=== PATIENT | female | born 1950 | race Caucasian/White ===

== ENCOUNTER 2019-11-28 11:25 | Emergency (ER) | payer OTHER ==
--- NOTE | 2019-11-28 12:08 | ER ---
Nurse's Notes [facility] Name: Niharika Rose Age: 69 yrs Sex: Female : 1950 Arrival Date: 11/28/2019 Time: 11:28 Bed 17 Private MD: Diagnosis: Other slipping, tripping and stumbling and falls;Temporomandibular joint disorder, unspecified;Left Mandibular Contusion Presentation: 11/27 11:40 Chief complaint: Patient states: "I stumbled and fell right onto my chin". pt c/o jaw aa5 pain. Denies LOC. 11:40 Coronavirus screen: Proceed with normal triage. Patient denies a cough. Patient denies aa5 shortness of breath or difficulty breathing. Patient denies measured and/or subjective temperature greater than 100.4F prior to today's visit. Patient denies travel on a cruise ship or to a country the [facility] currently lists as an affected area. Patient denies contact with known and/or suspected case of COVID-19. Ebola Screen: Patient negative for fever greater than or equal to 101.5 degrees Fahrenheit, and additional compatible Ebola Virus Disease symptoms. Initial Sepsis Screen: Does the patient meet any 2 criteria? No. Patient's initial sepsis screen is negative. Does the patient have a suspected source of infection? No. Patient's initial sepsis screen is negative. Risk Assessment: Do you want to hurt yourself or someone else? Patient reports no desire to harm self or others. Onset of symptoms was November 28, 2019. 11:40 Acuity: JUAN 4 aa5 11:40 Method Of Arrival: Ambulatory aa5 Historical: - Allergies: 11:49 No Known Allergies; aa5 - PMHx: 11:49 None; aa5 - PSHx: 11:49 Appendectomy; aa5 - Immunization history:: Last tetanus immunization: unknown. - Social history:: Smoking status: Patient denies any tobacco usage or history of. Screenin:45 Abuse screen: Denies threats or abuse. Nutritional screening: No deficits noted. rb1 Tuberculosis screening: No symptoms or risk factors identified. Fall Risk Fall in past 12 months (25 points). No secondary diagnosis (0 pts). No IV (0 pts). Ambulatory Aid- None/Bed Rest/Nurse Assist (0 pts). Gait- Normal/Bed Rest/Wheelchair (0 pts) Mental Status- Oriented to own ability (0 pts). Total Sun Fall Scale indicates Low Risk Score (25-44 pts). Fall prevention measures have been instituted. Side Rails Up X 2 Placed close to Nursing Station 1:1 attendant Assigned to Pt. Frequent Obs/Assesments occuring As available Patient and Family Educated on Fall Prevention Program and strategies. Assessment: 11:45 General: Appears in no apparent distress. comfortable, Behavior is calm, cooperative. rb1 General: Pt. reports that she was running when she fell landing on her hands and hitting her chin on the sidewalk. Denies LOC. . Pain: Complains of pain in left jaw Pain currently is 3 out of 10 on a pain scale. Pain began this morning. Neuro: Level of Consciousness is awake, alert, obeys commands, Oriented to person, place, time, situation. Cardiovascular: Capillary refill < 3 seconds. Respiratory: Airway is patent Respiratory effort is even, unlabored, Respiratory pattern is regular, symmetrical. GI: No signs and/or symptoms were reported involving the gastrointestinal system. : No signs and/or symptoms were reported regarding the genitourinary system. Derm: Skin is pink, warm \\T\\ dry. Derm: approximate 0.5 cm laceration noted to her chin, bleeding controlled. Musculoskeletal: Range of motion: intact in all extremities. 12:19 Reassessment: Discharge pending due to shot time. rb1 12:29 Reassessment: Patient appears in no apparent distress at this time. No changes from rb1 previously documented assessment. Vital Signs: 11:40 BP 126 / 76; Pulse 87; Resp 16 S; Temp 97.2(TE); Pulse Ox 100% on R/A; Weight 57.15 kg aa5 (R); Height 5 ft. 4 in. (162.56 cm) (R); Pain 3/10; 12:29 BP 102 / 65; Pulse 74; Resp 16; Pulse Ox 100% on R/A; rb1 11:40 Body Mass Index 21.63 (57.15 kg, 162.56 cm) aa5 ED Course: 11:28 Patient arrived in ED. as 11:40 Arm band placed on. aa5 11:45 Patient has correct armband on for positive identification. Bed in low position. Call rb1 light in reach. Side rails up X 1. Pulse ox on. NIBP on. 11:46 Triage completed. aa5 11:52 Pepe Mcintyre MD is Attending Physician. kdr 12:01 Shannon Govea, RN is Primary Nurse. rb1 12:30 No provider procedures requiring assistance completed. Patient did not have IV access rb1 during this emergency room visit. 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 Exp: rb1 08/22/2021. Lot #: [id number]. } Route: IM; Site: right deltoid; 12:27 Follow up: Response: No adverse reaction rb1 Outcome: 12:08 Discharge ordered by . kdr 12:30 Patient left the ED. rb1 12:30 Discharged to home ambulatory. rb1 12:30 Condition: stable 12:30 Discharge instructions given to patient, Instructed on discharge instructions, follow up and referral plans. medication usage, Demonstrated understanding of instructions, follow-up care, medications, Prescriptions given X 1. Signatures: Pepe Mcintyre MD MD [facility] Prema Shukla Audri, RN RN aa5 Shannon Govea, RN RN rb1
--- NOTE | 2019-11-28 12:08 | EDPHYS ---
Physician Documentation [facility] Name: Niharika Rose Age: 69 yrs Sex: Female : 1950 Arrival Date: 11/28/2019 Time: 11:28 Bed 17 Private MD: ED Physician Pepe Mcintyre HPI: 11/27 12:00 This 69 yrs old Female presents to ER via Ambulatory with complaints of Fall kdr Injury, Jaw Pain. 12:00 Details of fall: The patient fell from an upright position, while running. Onset: The kdr symptoms/episode began/occurred acutely, just prior to arrival. Associated injuries: The patient sustained Left TMJ and mandible. Severity of symptoms: At their worst the symptoms were mild, in the emergency department the symptoms are unchanged. The patient has not experienced similar symptoms in the past. The patient has not recently seen a physician. Historical: - Allergies: 11:49 No Known Allergies; aa5 - PMHx: 11:49 None; aa5 - PSHx: 11:49 Appendectomy; aa5 - Immunization history:: Last tetanus immunization: unknown. - Social history:: Smoking status: Patient denies any tobacco usage or history of. ROS: 12:00 Constitutional: Negative for fever, chills, and weight loss. kdr 12:00 ENT: Positive for Left proximal mandibular pain and 3 mm lac to chin. 12:00 Skin: Positive for laceration(s), of the submental area. Exam: 12:00 Constitutional: This is a well developed, well nourished patient who is awake, alert, kdr and in no acute distress. 12:00 Head/face: Noted is tenderness, of the chin and left cheek. Vital Signs: 11:40 BP 126 / 76; Pulse 87; Resp 16 S; Temp 97.2(TE); Pulse Ox 100% on R/A; Weight 57.15 kg aa5 (R); Height 5 ft. 4 in. (162.56 cm) (R); Pain 3/10; 12:29 BP 102 / 65; Pulse 74; Resp 16; Pulse Ox 100% on R/A; rb1 11:40 Body Mass Index 21.63 (57.15 kg, 162.56 cm) aa5 Laceration: 12:00 Wound Repair of .3cm ( 0.1in ) subcutaneous laceration to submental area. Distal kdr neuro/vascular/tendon intact. Anesthesia: Local anesthetic administered with 1% lidocaine. Wound prep: Moderate cleansing, Copious irrigation. Skin closed with thin layer Adhesive skin closure using Dermabond. Dressed with bandaid. Patient tolerated well. MDM: 12:00 Data reviewed: vital signs, nurses notes. Counseling: I had a detailed discussion with kdr the patient and/or guardian regarding: the historical points, exam findings, and any diagnostic results supporting the discharge/admit diagnosis, lab results, radiology results, the need for outpatient follow up. 12:08 Patient medically screened. 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 Exp: rb1 08/22/2021. Lot #: [id number]. } Route: IM; Site: right deltoid; 12:27 Follow up: Response: No adverse reaction rb1 Disposition: 11/28/19 12:08 Discharged to Home. Impression: Other slipping, tripping and stumbling and falls, Temporomandibular joint disorder, unspecified, Left Mandibular Contusion. - Condition is Stable. - Discharge Instructions: Temporomandibular Joint Syndrome, Tissue Adhesive Wound Care, [id number]. - Prescriptions for Ibuprofen 600 mg Oral Tablet - take 1 tablet by ORAL route every 6 hours As needed take with food; 15 tablet. - Medication Reconciliation Form, Thank You Letter form. - Follow up: Private Physician; When: 2 - 3 days; Reason: If symptoms return, Further diagnostic work-up, Recheck today's complaints, Continuance of care, Re-evaluation by your physician. - Problem is new. - Symptoms have improved. Signatures: Pepe Mcintyre MD MD kdr Zahra Leblanc, RN RN aa5 Shannon Govea, RN RN rb1 Corrections: (The following items were deleted from the chart) 12:30 12:08 11/28/2019 12:08 Discharged to Home. Impression: Other slipping, tripping and rb1 stumbling and falls; Temporomandibular joint disorder, unspecified; Left Mandibular Contusion. Condition is Stable. Forms are Medication Reconciliation Form, Thank You Letter, Antibiotic Education, Prescription Opioid Use. Follow up: Private Physician; When: 2 - 3 days; Reason: If symptoms return, Further diagnostic work-up, Recheck today's complaints, Continuance of care, Re-evaluation by your physician. Problem is new. Symptoms have improved. kdr
[2019-11-28] MEDS ORDERED: DERMABOND SKIN ADHESIVE TOP ONE (12:09)
[2019-11-28] MEDS ORDERED: TETANUS & DIPHTHERIA TOX,ADULT 0.5 ML VIAL ONE (12:09)
[2019-11-28 12:36] VITALS: TEMP 97.2; O2SAT 100
[2019-11-28 12:37] VITALS: BP 102/65
== END 2019-11-28 12:30 | disposition home or self-care (01) ==
LOC: ER 11:25
PROC: 0JQ10ZZ Repair Face Subcutaneous Tissue and Fascia, Open Approach (ICD-10-PCS; principal; 2019-11-28)
DX: S01.81XA Laceration without foreign body of other part of head, initial encounter (principal); M26.609 Unspecified temporomandibular joint disorder, unspecified side; W01.0XXA Fall on same level from slipping, tripping and stumbling without subsequent striking against object, initial encounter; Y93.02 Activity, running; Y92.9 Unspecified place or not applicable; Z23 Encounter for immunization
CPT/HCPCS: 90471; 90714; 99283

== ENCOUNTER 2023-05-22 08:37 | Emergency (ER) | payer OTHER ==
--- OUTSIDE RECORDS SUMMARY | 2023-05-22 08:41 | XMS REPORT | Continuity of Care Document ---
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 Social History Social Habit Start Date Stop Date Quantity Comments Source History of tobacco Cigarette Smoker [facility] use Exposure to 2022-12-27 2023-01-06 Not sure [facility] SARS-CoV-2 (event) 00:00:00 08:55:00 Tobacco use and 2023-01-06 2023-01-06 Smokeless tobacco [facility] exposure 00:00:00 00:00:00 non-user Alcohol intake 2023-01-06 2023-01-06 Lifetime [facility] 00:00:00 00:00:00 non-drinker (finding) Sex Ass[birth year] At [birth year] [facility] 00:00:00 00:00:00 Smoking Status Start Date Stop Date Source Tobacco smoking consumption unknown [facility] Ex-smoker 2023-01-06 00:00:00 2023-01-06 00:00:00 [facility] Medications Ordered Filled Start Stop Current Ordering Indication Dosage Frequency Signature Comments Components Source Medication Medication Date Date Medication? Clinician (SIG) Name Name buPROPion 0 Yes [facility] XL ([facility] XL) 450 MG 00:00: 24 hr 00 tablet lamoTRIgine 2020-0 Yes [facility] (LaMICtal) [facility] 25 MG 00:00: tablet 00 buPROPion 2020-0 Yes [facility] XL (For[facility] XL) 450 MG 00:00: 24 hr 00 tablet lamoTRIgine 1-0 Yes [facility] (LaMICtal) [facility] 25 MG 00:00: tablet 00 buPROPion 1-0 Yes [facility] XL (Forfivo [facility] XL) 450 MG 00:00: 24 hr 00 tablet lamoTRIgine 1-0 Yes [facility] (LaMICtal) [facility] 25 MG 00:00: tablet 00 buPROPion 1-0 Yes [facility] XL (Forfivo [facility] XL) 450 MG 00:00: 24 hr 00 tablet lamoTRIgine 2021-0 Yes [facility] (LaMICtal) [facility] 25 MG 00:00: tablet 00 Procedures This patient has no known procedures. Encounters Start End Encounter Admission Attending Care Care Encounter Source Date/Time Date/Time Type Type Clinicians Facility Department ID 2023-01-06 Outpatient [facility] [id number] [place] 08:50:00 [id number] [facility] 2023-01-05 Outpatient [facility] [id number] [place] 07:30:09 [id number] [facility] 2022-10-20 Outpatient [facility] [id number] [place] 08:49:36 [id number] [facility] 2022-05-09 [facility] [id number] Common 15:08:03 [facility] 2020-12-12 Outpatient [facility] [id number] [place] [facility]:15[facility] 2024-01-08 Outpatient [facility]ON[facility] [id number] [place] 09:30:00 09:30:[facility]23-01-06 2023-01-06 Office DANA Zamorano [id number] [place] 09:30:00 09:30:00 Visit Latonia ERICKSON [id number] [facility] [id number] [facility] [id number] 2022-01-06 2022-01-06 Office DANA Zamorano [facility] [id number] [place] 09:00:00 09:45:36 Visit Latonia [id number] He alth [id number] 2021-04-05 2021-04-05 Office DANA Zamorano [facility] [id number] [place] 08:26:43 16:30:49 Visit Latonia [id number] He alth [id number] 2021-01-01 2021-01-01 Office DANA Zamorano [facility] [id number] [place] 08:15:40 08:39:03 Visit Latonia [id number] He alth [id number] 1 2021-01-01 2021-01-01 Office DANA Zamorano [facility] [id number] [place] 08:35:11 08:38:31 Visit Latonia [id number] He alth [id number] 1 Results This patient has no known results.
--- NOTE | 2023-05-22 09:09 | RAD REPORT ---
[facility] CLINICAL HISTORY: CHEST PAIN COMPARISON: CHEST SINGLE VIEW dated 01/15/2013; CHEST PA AND LAT 2 VIEW dated 08/10/2010; CHEST PA AND LAT 2 VIEW dated 03/28/2008; CHEST PA AND LAT 2 VIEW dated 02/09/2007 TECHNIQUE: Portable AP view of the chest. FINDINGS: The lungs are clear. Diffuse hyperinflation again seen, suggesting sequelae of COPD. No pn eumothorax or effusion. The cardiomediastinal contours are unremarkable. IMPRESSION: No acute cardiopulmonary process.
--- NOTE | 2023-05-22 09:10 | RAD REPORT ---
EXAM DESCRIPTION: Ribs Right - 05/22/2023 9:02 am CLINICAL HISTORY: RIB PAIN - RIGHT COMPARISON: Chest Single View dated 05/22/2023 TECHNIQUE: Right ribs, 3 views. FINDINGS: No displaced rib fracture is evident. No aggressive rib lesion. No underlying pneumothorax, effusion, infiltrate or pulmonary contusion. IMPRESSION: Negative right rib series.
--- NOTE | 2023-05-22 09:12 | ER ---
[facility] Name: Niharika Rose Age: 73 yrs Sex: Female : 1950 Arrival Date: 05/22/2023 Time: 08:37 Bed 20 Private MD: Diagnosis: Contusion of right front wall of thorax-lateral Presentation: 05/22 08:51 Chief complaint: Patient states: Tripped last night. Has R trunk pain today. ll1 Coronavirus screen: Vaccine status: Patient reports receiving the 2nd dose of the covid vaccine. Client denies travel out of the [place] in the last 14 days. At this time, the client does not indicate any symptoms associated with coronavirus-19. Ebola Screen: Patient denies travel to an Ebola-affected area in the 21 days before illness onset. Initial Sepsis Screen: Does the patient meet any 2 criteria? No. Patient's initial sepsis screen is negative. Does the patient have a suspected source of infection? Yes: Bone or joint infection. Risk Assessment: Do you want to hurt yourself or someone else? Patient reports no desire to harm self or others. Onset of symptoms was May 21, 2023. 08:51 Method Of Arrival: Ambulatory ll1 08:51 Acuity: JUAN 4 ll1 Historical: - Allergies: 08:50 No Known Allergies; ll1 - PMHx: 08:50 None; ll1 - PSHx: 08:50 None; ll1 - Immunization history:: Client reports receiving the 2nd dose of the Covid vaccine. - Social history:: Smoking status: Patient denies any tobacco usage or history of. Screenin:18 [facility] ED Fall Risk Assessment (Adult) History of falling in the last 3 months, ap3 including since admission Yes- single mechanical fall (1 pt) Confusion or Disorientation No (0 pts) Intoxicated or Sedated No (0 pts) Impaired Gait No (0 pts) Mobility Assist Device Used No (0 pt). Abuse screen: Denies threats or abuse. Nutritional screening: No deficits noted. Tuberculosis screening: No symptoms or risk factors identified. Assessment: 09:18 General: Appears in no apparent distress. Behavior is calm, cooperative, appropriate ap3 for age. Pain: Complains of pain in right lateral anterior chest. Neuro: Level of Consciousness is awake, alert, obeys commands, Oriented to person, place, time, situation. Cardiovascular: Patient's skin is warm and dry. Respiratory: Airway is patent Respiratory effort is even, unlabored. Vital Signs: 08:51 BP 141 / 68; Pulse 81; Resp 15; Temp 97.1; Pulse Ox 100% ; Weight 61.23 kg; Height 5 ll1 ft. 4 in. ; Pain 5/10; 08:51 Body Mass Index 23.17 (61.23 kg, 162.56 cm) ll1 08:51 Pain Scale: Adult ll1 ED Course: 08:38 Patient arrived in ED. rg4 08:39 Mariaelena Joseph FNP-C is [facility]. kb 08:39 Graciela Anderson MD is Attending Physician. kb 08:50 Laurel Conde, RN is Primary Nurse. ap3 08:50 Arm band placed on Patient placed in an exam room, on a stretcher. ll1 08:52 Triage completed. ll1 08:59 Chest Single View XRAY In Process Unspecified. EDMS 08:59 Ribs Right XRAY In Process Unspecified. EDMS 09:18 No provider procedures requiring assistance completed. Patient did not have IV access ap3 during this emergency room visit. 09:19 Provided Education on: discharge instructions. ap3 09:19 Patient has correct armband on for positive identification. Bed in low position. Call ap3 light in reach. Pulse ox on. NIBP on. Administered Medications: No medications were administered Medication: 09:19 VIS not applicable for this client. ap3 Outcome: 09:12 Discharge ordered by . kb 09:18 Discharged to home ambulatory, ap3 09:18 Condition: good 09:18 Discharge instructions given to patient, Instructed on discharge instructions, follow up and referral plans. Demonstrated understanding of instructions, follow-up care, 09:19 Patient left the ED. ap3 Signatures: Dispatcher [employer] EDMS Mariaelena Joseph FNP-C FNP-Lorene Vail rg4 Laurel Conde, RN RN ap3 Greer Hernandez RN RN ll1
--- NOTE | 2023-05-22 09:12 | EDPHYS ---
Physician Documentation [facility] Name: Niharika Rose Age: 73 yrs Sex: Female : 1950 Arrival Date: 05/22/2023 Time: 08:37 Bed 20 Private MD: ED Physician Graciela Anderson HPI: 05/22 09:06 This 73 yrs old Female presents to ER via Ambulatory with complaints of Fall Injury. kb 09:06 Details of fall: The patient fell from a height, down approximately 4 stairs. Onset: kb The symptoms/episode began/occurred yesterday. Associated injuries: The patient sustained injury to the chest, specifically the right lateral anterior chest, pain with breathing, pain with movement. Severity of symptoms: At their worst the symptoms were mild, in the emergency department the symptoms are unchanged. The patient has not experienced similar symptoms in the past. The patient has not recently seen a physician. Pt reports she fell down 4 steps last night and hit her right ribs. Reports soreness to right lateral ribs that is worse with movement and deep breath. Denies any other injuries. Denies loc. Historical: - Allergies: 08:50 No Known Allergies; ll1 - PMHx: 08:50 None; ll1 - PSHx: 08:50 None; ll1 - Immunization history:: Client reports receiving the 2nd dose of the Covid vaccine. - Social history:: Smoking status: Patient denies any tobacco usage or history of. ROS: 09:05 Constitutional: Negative for fever, chills, and weight loss, kb 09:05 Cardiovascular: Positive for chest pain, with movement, of the right lateral anterior chest, 09:05 All other systems are negative, Exam: 09:05 Constitutional: This is a well developed, well nourished patient who is awake, alert, kb and in no acute distress. Head/Face: Normocephalic, atraumatic. ENT: Moist Mucous membranes Cardiovascular: Regular rate Respiratory: Respirations even and unlabored. No increased work of breathing. Talking in full sentences Abdomen/GI: Soft, non-tender. No distention Skin: Warm, dry with normal turgor. Normal color. MS/ Extremity: Pulses equal, no cyanosis. Neurovascular intact. Full, normal range of motion. Neuro: Awake and alert, GCS 15, oriented to person, place, time, and situation. Moves all extremities. Normal gait. Vital Signs: 08:51 BP 141 / 68; Pulse 81; Resp 15; Temp 97.1; Pulse Ox 100% ; Weight 61.23 kg; Height 5 ll1 ft. 4 in. ; Pain 5/10; 08:51 Body Mass Index 23.17 (61.23 kg, 162.56 cm) ll1 08:51 Pain Scale: Adult ll1 MDM: 08:39 Patient medically screened. kb 09:06 Data reviewed: vital signs, nurses notes. kb 09:07 Differential diagnosis: contusion, laceration. kb 09:11 Counseling: I had a detailed discussion with the patient and/or guardian regarding the kb historical points, exam findings, and any diagnostic results supporting the discharge/admit diagnosis, radiology results, the need for outpatient follow up, a family practitioner, to return to the emergency department if symptoms worsen or persist or if there are any questions or concerns that arise at home. 05/22 08:41 Order name: Chest Single View XRAY; Complete Time: 09:11 kb 05/22 08:41 Order name: Ribs Right XRAY; Complete Time: 09:11 kb Administered Medications: No medications were administered Disposition Summary: 05/22/23 09:12 Discharge Ordered Notes: Location: Home kb Condition: Stable kb Diagnosis - Contusion of right front wall of thorax - lateral kb Followup: kb - With: Emergency Department - When: As needed - Reason: Worsening of condition Followup: kb - With: Private Physician - When: 2 - 3 days - Reason: Recheck today's complaints, Continuance of care, Re-evaluation by your physician Discharge Instructions: - Discharge Summary Sheet kb - Rib Contusion kb - Chest Contusion, Adult, [id number] kb Forms: - Medication Reconciliation Form kb - Thank You Letter kb - Antibiotic Education kb - Prescription Opioid Use kb - Patient Portal Instructions kb - Leadership Thank You Letter kb Signatures: Dispatcher [employer] Mariaelena Roland FNP-C FNP-Greer Zelaya, RN RN ll1
[2023-05-22 09:24] VITALS: BP 141/68; TEMP 97.1; O2SAT 100
== END 2023-05-22 09:19 | disposition home or self-care (01) ==
LOC: ER 08:37
DX: S20.211A Contusion of right front wall of thorax, initial encounter (principal)
CPT/HCPCS: 71045; 99283

== ENCOUNTER 2024-12-05 10:55 | Day surgery (SDC) | payer OTHER ==
[2024-12-04 12:12] LABS: Absolute Eosinophils 0.1 K/uL (0-0.5); Absolute Lymphocytes (CBC) 1.3 K/uL (0.7-4.9); Absolute Monocytes 0.4 K/uL (0.1-1.3); Absolute Neutrophil 3.1 K/uL (1.8-8.0); Basophils % 0.7 % (0-1.3); Eosinophils % 2.5 % (0-4.4); Hematocrit 39.2 % (36.0-45.0); Hemoglobin 13.7 g/dL (12.0-15.0); Lymphocytes % 25.3 % (15.3-44.8); MCH 32.7 pg (27.0-35.0); MCV 93.4 fL (80-100); MPV 8.7 fL (7.6-11.3); Monocytes % 8.3 % (3.3-12.3); Neutrophils % 63.2 % (41.7-73.7); Nucleated Red Blood Cells % 0.1 % (0-0); Platelets 207 thou/uL (152-406); RBC Red Blood Cell Count 4.19 M/uL (3.86-4.86); Red Cell Distribution Width 13.8 % (12.1-15.2)
[2024-12-04 12:26] LABS: Anion Gap 7.3 mEq/L (5.0-15.0); Potassium 4.3 mEq/L (3.5-5.1)
[2024-12-05] MEDS: Ringers Lactate 1,000 ML IV ONE (11:15)
--- NOTE | 2024-12-05 11:56 | EKG ---
Test Date: 2024-12-04 Test Time: 11:56:57 Director Diversity: CLARA MEASUREMENT RESULTS: Intervals: Rate: 88 MI: 144 QRSD: 76 QT: 346 QTc: 418 [place]: P: 74 MI: 144 QRS: 69 T: 72 INTERPRETIVE STATEMENTS: Normal sinus rhythm Nonspecific ST abnormality Abnormal ECG Compared to ECG 01/15/2013 19:23:25 ST (T wave) deviation now present Electronically Signed On 12-05-24 11:53:11 CDT by Anant Leon
[2024-12-05] MEDS: CEFAZOLIN SODIUM 2 GM/VIAL ONE (13:26)
[2024-12-05] MEDS: LIDOCAINE HCL/EPINEPHRINE 20 ML MDV ONE (13:54)
[2024-12-05] MEDS ORDERED: LIDOCAINE 1% MPF 5 ML VIAL ONE (14:04)
[2024-12-05] MEDS ORDERED: ONDANSETRON 4 MG/2 ML VIAL ONE (14:04)
[2024-12-05] MEDS ORDERED: FENTANYL CITR 100 MCG/2 ML ONE (14:05)
[2024-12-05] MEDS ORDERED: propofoL 200 MG/20 ML VIAL IV ONE (14:05)
[2024-12-05] MEDS ORDERED: MIDAZOLAM HCL 2 MG/2 ML INJ ONE (14:05)
[2024-12-05] MEDS ORDERED: ROCURONIUM 50 MG/5 ML VIAL IV ONE (14:05)
[2024-12-05] MEDS ORDERED: SUCCINYLCHOLINE 20 MG/ML (10 ML) IV ONE (14:16)
[2024-12-05] MEDS ORDERED: Phenylephrine HCl 10 MG/ML 1 ML VIAL ONE (15:16)
[2024-12-05] MEDS ORDERED: Mastisol Adhesive Liq ONE (15:16)
[2024-12-05] MEDS ORDERED: Ringers Lactate 1,000 ML IV ONE (15:30)
--- NOTE | 2024-12-05 15:54 | RAD REPORT ---
EXAM: Fluoroscopy use, Fluoroscopy <1 Hour HISTORY: SACRAL MOD COMPARISON: None FINDINGS: Multiple images were sent to PACS, during a fluoroscopically guided procedure. No radiologi st was involved in protocoling or performance of the study, and no radiologist was present for the duration of the procedure. No interpretation of the saved images will be provided. Total fluoroscopy time: 1.0 min. IMPRESSION: Documentation of fluoroscopy use as above. Transcribed Date/Time: 12/05/2024 3:54 PM
[2024-12-05] MEDS ORDERED: HYDROCODONE/APAP 5/325 MG TAB ONE (17:17)
[2024-12-05] MEDS: HYDROCODONE/APAP 5/325 MG TAB PO ONE (17:20)
[2024-12-05 18:04] VITALS: BP 124/65; TEMP 98.2; O2SAT 96
== END 2024-12-05 17:35 | disposition home or self-care (01) ==
LOC: OR 10:55
PROVIDERS: ATTEND Obstetrics & Gynecology
PROC: 01HY3MZ Insertion of Neurostimulator Lead into Peripheral Nerve, Percutaneous Approach (ICD-10-PCS; principal; 2024-12-05 13:30)
PROC: 0JH73BZ Insertion of Single Array Stimulator Generator into Back Subcutaneous Tissue and Fascia, Percutaneous Approach (ICD-10-PCS; 2024-12-05 13:30)
DX: N39.41 Urge incontinence (principal); R35.0 Frequency of micturition
CPT/HCPCS: 93005; 85025; 80048; 36415; 64561; 64590; J2704; J2003; J2371; J2250; J3010; J2405; J7120 ×2; C1778; C1767; 76000